=== PATIENT | male | born 1935 | race Two or more races ===

== ENCOUNTER 2022-01-21 07:55 | Emergency (ER) | payer OTHER ==
[~2022-01-21] VITALS: Ht 172.7 cm; Wt 94.8 kg
[2022-01-21] MEDS ORDERED: SODIUM CHLORIDE 0.9% 1,000 ML IV ONE (08:15)
[2022-01-21] MEDS ORDERED: MECL1TAB42 PO (09:33)
[2022-01-21] MEDS ORDERED: cloNIDine HCL 0.1 MG TAB PO ONE (09:45)
[2022-01-21 10:12] LABS: Basophils # (auto) 0.1 10 ^3/uL (0-0.2); Basophils % (auto) 1.5 % (0.0-2.0); Eosinophils # (auto) 0.2 10 ^3/uL (0-0.8); Eosinophils % (auto) 5.2 % (0.0-7.0); Hematocrit 39.4 % (41.0-53.0); Hemoglobin 12.8 g/dL (13.5-17.5); Lymphocytes # (auto) 1.4 10 ^3/uL (0.4-5.4); Lymphocytes % (auto) 31.8 % (10.0-50.0); Mean Corpuscular Hemoglobin 29.4 pg (28.0-32.0); Mean Corpuscular Hgb Conc. 32.6 g/dL (32.0-36.0); Mean Corpuscular Volume 90.2 fL (80.0-100.0); Monocytes # (auto) 0.5 10 ^3/uL (0-1.3); Monocytes % (auto) 10.2 % (0.0-12.0); Neutrophils # (auto) 2.3 10 ^3/uL (1.6-8.6); Neutrophils % (auto) 51.3 % (37.0-80.0); Nucleated Red Blood Cells % 0.1 %; Red Blood Cells 4.37 10^6/uL (4.5-5.90); Red Cell Distribution Width 16.5 % (11.8-14.3); White Blood Cell 4.4 10^3/uL (4.4-10.8)
[2022-01-21 10:49] LABS: Albumin 3.5 g/dL (3.4-5.0); Calcium 9.2 mg/dL (8.5-10.1); Potassium 5.1 mmol/L (3.5-5.1)
[2022-01-21 10:54] LABS: Bilirubin, Total 0.5 mg/dL (0.2-1.0); Total Protein 7.8 g/dL (6.4-8.2)
[2022-01-21 14:38] VITALS: BP 170/74
== END 2022-01-21 14:30 | disposition home or self-care (01) ==
LOC: ER 07:55
DX: R42 Dizziness and giddiness (principal); I10 Essential (primary) hypertension
CPT/HCPCS: 36415; 70450; 71045; 80053; 83880; 84484; 85025; 93005; 96360; 96361; 99285; J7030

== ENCOUNTER 2022-05-15 11:33 | Inpatient (IN) | payer OTHER ==
[~2022-05-15] VITALS: Ht 172.7 cm; Wt 104.2 kg
[~2022-05-15 11:33] MED LIST: MECL1TAB42 PO
[2022-05-15] MEDS ORDERED: HYDROcodone-ACET 5/325MG TAB PO ONE (20:00)
[2022-05-15 20:25] LABS: Basophils # (auto) 0.1 10 ^3/uL (0-0.2); Eosinophils # (auto) 0.3 10 ^3/uL (0-0.8); Eosinophils % (auto) 3.9 % (0.0-7.0); Hematocrit 38.2 % (41.0-53.0); Hemoglobin 12.6 g/dL (13.5-17.5); Lymphocytes # (auto) 0.9 10 ^3/uL (0.4-5.4); Mean Corpuscular Hemoglobin 29.8 pg (28.0-32.0); Mean Corpuscular Hgb Conc. 33.1 g/dL (32.0-36.0); Mean Corpuscular Volume 90.2 fL (80.0-100.0); Monocytes # (auto) 0.6 10 ^3/uL (0-1.3); Monocytes % (auto) 8.2 % (0.0-12.0); Neutrophils # (auto) 5.9 10 ^3/uL (1.6-8.6); Neutrophils % (auto) 74.9 % (37.0-80.0); Nucleated Red Blood Cells % 0.1 %; Red Blood Cells 4.23 10^6/uL (4.5-5.90); Red Cell Distribution Width 16.7 % (11.8-14.3); White Blood Cell 7.8 10^3/uL (4.4-10.8)
[2022-05-15 20:38] LABS: Albumin 2.9 g/dL (3.4-5.0); Calcium 9.2 mg/dL (8.5-10.1); Potassium 4.8 mmol/L (3.5-5.1)
[2022-05-15 21:04] LABS: BUN/Creatinine Ratio 19.2
[2022-05-15 21:05] LABS: Bilirubin, Total 4.3 mg/dL (0.2-1.0); Total Protein 7.8 g/dL (6.4-8.2)
[2022-05-15 22:19] LABS: Uric Acid 2.3 mg/dL (3.5-7.2)
[2022-05-15] MEDS ORDERED: SODIUM CHLORIDE 0.9% 1,000 ML IV ONE ×2 (23:00)
[2022-05-16] MEDS ORDERED: SODIUM CHLORIDE 0.9% 1,000 ML IV ONE (00:45)
[2022-05-16] MEDS ORDERED: ONDANSETRON HCL 4 MG/2 ML VIAL IV PRN (01:00)
[2022-05-16] MEDS ORDERED: fentaNYL CITRATE 100 MCG/2 ML VL IV ONE (01:15)
[2022-05-16 05:34] LABS: Basophils # (auto) 0.1 10 ^3/uL (0-0.2); Basophils % (auto) 1.5 % (0.0-2.0); Eosinophils # (auto) 0.3 10 ^3/uL (0-0.8); Eosinophils % (auto) 4.3 % (0.0-7.0); Hemoglobin 11.5 g/dL (13.5-17.5); Lymphocytes # (auto) 0.7 10 ^3/uL (0.4-5.4); Lymphocytes % (auto) 9.8 % (10.0-50.0); Mean Corpuscular Hemoglobin 30.4 pg (28.0-32.0); Mean Corpuscular Hgb Conc. 33.7 g/dL (32.0-36.0); Mean Corpuscular Volume 90.1 fL (80.0-100.0); Monocytes # (auto) 0.6 10 ^3/uL (0-1.3); Monocytes % (auto) 8.8 % (0.0-12.0); Neutrophils # (auto) 5.4 10 ^3/uL (1.6-8.6); Neutrophils % (auto) 75.6 % (37.0-80.0); Red Blood Cells 3.78 10^6/uL (4.5-5.90); Red Cell Distribution Width 16.6 % (11.8-14.3); White Blood Cell 7.2 10^3/uL (4.4-10.8)
[2022-05-16 05:51] LABS: Albumin 2.1 g/dL (3.4-5.0); Calcium 8.2 mg/dL (8.5-10.1); Potassium 4.1 mmol/L (3.5-5.1)
[2022-05-16 06:02] LABS: Bilirubin, Total 4.7 mg/dL (0.2-1.0); Total Protein 6.6 g/dL (6.4-8.2)
[2022-05-16 06:29] LABS: BUN/Creatinine Ratio 17.8
[2022-05-16] MEDS: ALBUMIN 25% 100 ML IV SCH ×3 (06:34→21:51)
[2022-05-16 07:01] LABS: Urine Bacteria FEW /hpf (None Seen); Urine Blood 3+ /uL (Negative); Urine Specific Gravity 1.004 (1.001-1.035); Urine WBC 1 /hpf (0 - 3)
[2022-05-16 07:11] LABS: Amphetamine Screen, Urine NEGATIVE (NEGATIVE); Barbiturate Scree,Urine NEGATIVE (NEGATIVE); Benzodiazephine Screen, Urine NEGATIVE (NEGATIVE); Cannabinoid Screen, Urine NEGATIVE (NEGATIVE)
[2022-05-16 07:13] LABS: Alcohol, Urine < 3.0 mg/dL (0-10); Cocaine Screen, Urine NEGATIVE (NEGATIVE); Opiate Scree,Urine NEGATIVE (NEGATIVE); Phencyclidine Screen, Urine NEGATIVE (NEGATIVE)
[2022-05-16] MEDS: SODIUM CHLORIDE 0.9% 1,000 ML IV SCH ×4 (08:54→21:31)
[2022-05-16 13:16] LABS: Hepatitis A Ab IgM Negative; Hepatitis C Antibody Negative (Negative)
[2022-05-16 13:50] VITALS: BP 145/81
[2022-05-16 16:00] VITALS: BP 125/74
[2022-05-16 16:50] LABS: Hepatitis B Core IgM Negative
[2022-05-16] MEDS: MORPHINE SULFATE INJ 2 MG/ml SYRG IV PRN (17:57)
[2022-05-16 22:00] VITALS: BP 151/81
[2022-05-17] MEDS ORDERED: TAMS0.4C36 PO (01:50)
[2022-05-17] MEDS ORDERED: ASPI-543 PO (01:50)
[2022-05-17] MEDS ORDERED: TRIATAB3 PO (01:50)
[2022-05-17] MEDS ORDERED: ATOR40TA52 PO (01:50)
[2022-05-17] MEDS ORDERED: LEVO88TA4 PO (01:50)
[2022-05-17] MEDS ORDERED: ALLO100T PO (01:50)
[2022-05-17] MEDS ORDERED: ALBU2TAB4 PO (01:50)
[2022-05-17] MEDS: SODIUM CHLORIDE 0.9% 1,000 ML IV SCH ×3 (04:45→18:05)
[2022-05-17 05:00] VITALS: BP 142/74
[2022-05-17 05:08] LABS: Basophils # (auto) 0.1 10 ^3/uL (0-0.2); Basophils % (auto) 1.1 % (0.0-2.0); Eosinophils # (auto) 0.3 10 ^3/uL (0-0.8); Eosinophils % (auto) 4.2 % (0.0-7.0); Hematocrit 33.3 % (41.0-53.0); Lymphocytes # (auto) 0.6 10 ^3/uL (0.4-5.4); Lymphocytes % (auto) 8.5 % (10.0-50.0); Monocytes # (auto) 0.5 10 ^3/uL (0-1.3); Monocytes % (auto) 6.7 % (0.0-12.0); Neutrophils # (auto) 5.4 10 ^3/uL (1.6-8.6); Neutrophils % (auto) 79.5 % (37.0-80.0); Nucleated Red Blood Cells % 0.1 %; Red Blood Cells 3.66 10^6/uL (4.5-5.90); Red Cell Distribution Width 16.7 % (11.8-14.3); White Blood Cell 6.8 10^3/uL (4.4-10.8)
[2022-05-17] MEDS: MORPHINE SULFATE INJ 2 MG/ml SYRG IV PRN ×3 (05:12→23:13)
[2022-05-17 05:14] LABS: INR 1.06 (0.9-1.15)
[2022-05-17 05:27] LABS: Potassium 4.7 mmol/L (3.5-5.1)
[2022-05-17 05:46] LABS: Albumin 2.9 g/dL (3.4-5.0); Bilirubin, Total 4.3 mg/dL (0.2-1.0); Calcium 8.2 mg/dL (8.5-10.1); Total Protein 5.8 g/dL (6.4-8.2)
[2022-05-17 07:30] VITALS: BP 158/98
[2022-05-17 09:00] VITALS: BP 158/78
[2022-05-17 13:00] VITALS: BP 150/75
[2022-05-17] MEDS ORDERED: SODIUM CHLORIDE 0.9% 2,000 ML IV ONE (14:30)
[2022-05-17 22:00] VITALS: BP 145/70
[2022-05-18] MEDS: SODIUM CHLORIDE 0.9% 1,000 ML IV SCH ×4 (00:55→21:51)
[2022-05-18 05:00] VITALS: BP 136/66
[2022-05-18 05:45] LABS: Basophils # (auto) 0.1 10 ^3/uL (0-0.2); Eosinophils # (auto) 0.3 10 ^3/uL (0-0.8); Eosinophils % (auto) 4.3 % (0.0-7.0); Hematocrit 33.3 % (41.0-53.0); Hemoglobin 11.4 g/dL (13.5-17.5); Lymphocytes # (auto) 0.6 10 ^3/uL (0.4-5.4); Lymphocytes % (auto) 7.3 % (10.0-50.0); Mean Corpuscular Hemoglobin 31.3 pg (28.0-32.0); Mean Corpuscular Hgb Conc. 34.4 g/dL (32.0-36.0); Mean Corpuscular Volume 91.1 fL (80.0-100.0); Monocytes # (auto) 0.5 10 ^3/uL (0-1.3); Monocytes % (auto) 6.9 % (0.0-12.0); Neutrophils # (auto) 6.2 10 ^3/uL (1.6-8.6); Neutrophils % (auto) 80.5 % (37.0-80.0); Red Blood Cells 3.65 10^6/uL (4.5-5.90); Red Cell Distribution Width 16.5 % (11.8-14.3); White Blood Cell 7.7 10^3/uL (4.4-10.8)
[2022-05-18 05:56] LABS: Potassium 5.3 mmol/L (3.5-5.1)
[2022-05-18 06:18] LABS: Albumin 2.2 g/dL (3.4-5.0); BUN/Creatinine Ratio 18.3; Bilirubin, Total 4.8 mg/dL (0.2-1.0); Calcium 8.1 mg/dL (8.5-10.1)
[2022-05-18 09:00] VITALS: BP 111/72
[2022-05-18] MEDS: MORPHINE SULFATE INJ 2 MG/ml SYRG IV PRN ×2 (10:22→19:31)
[2022-05-18 13:00] VITALS: BP 135/67
[2022-05-18] MEDS ORDERED: SODIUM CHLORIDE 0.9% 3,000 ML IV ONE (15:00)
[2022-05-18] MEDS ORDERED: BUMETANIDE 2.5mg/10ml (0.25 mg/ml) INJ IV ONE (15:00)
[2022-05-18 17:00] VITALS: BP 129/65
[2022-05-18] MEDS: DOCUSATE SOD 100 MG CAP PO SCH (21:51)
[2022-05-18 22:00] VITALS: BP 146/74
[2022-05-19] MEDS: MORPHINE SULFATE INJ 2 MG/ml SYRG IV PRN ×4 (01:40→19:05)
[2022-05-19] MEDS: SODIUM CHLORIDE 0.9% 1,000 ML IV SCH ×4 (04:54→22:00)
[2022-05-19 05:00] VITALS: BP 141/77
[2022-05-19 05:10] LABS: Basophils # (auto) 0.1 10 ^3/uL (0-0.2); Basophils % (auto) 1.3 % (0.0-2.0); Eosinophils # (auto) 0.3 10 ^3/uL (0-0.8); Eosinophils % (auto) 3.5 % (0.0-7.0); Hematocrit 33.8 % (41.0-53.0); Hemoglobin 11.3 g/dL (13.5-17.5); Lymphocytes # (auto) 0.6 10 ^3/uL (0.4-5.4); Lymphocytes % (auto) 8.9 % (10.0-50.0); Mean Corpuscular Hemoglobin 30.5 pg (28.0-32.0); Mean Corpuscular Hgb Conc. 33.5 g/dL (32.0-36.0); Mean Corpuscular Volume 91.1 fL (80.0-100.0); Monocytes # (auto) 0.6 10 ^3/uL (0-1.3); Monocytes % (auto) 7.9 % (0.0-12.0); Neutrophils # (auto) 5.7 10 ^3/uL (1.6-8.6); Neutrophils % (auto) 78.4 % (37.0-80.0); Red Blood Cells 3.71 10^6/uL (4.5-5.90); Red Cell Distribution Width 17.1 % (11.8-14.3); White Blood Cell 7.3 10^3/uL (4.4-10.8)
[2022-05-19 05:23] LABS: Albumin 1.9 g/dL (3.4-5.0); Calcium 7.8 mg/dL (8.5-10.1); Potassium 5.5 mmol/L (3.5-5.1)
[2022-05-19 05:40] LABS: BUN/Creatinine Ratio 17.8; Total Protein 5.6 g/dL (6.4-8.2)
[2022-05-19 08:00] VITALS: BP 135/67
[2022-05-19] MEDS ORDERED: SODIUM ZIRCONIUM CYCL 10 GM PAK PO ONE ×2 (08:00→10:00)
[2022-05-19] MEDS ORDERED: SODIUM CHLORIDE 0.9% 2,000 ML IV ONE (08:00)
[2022-05-19] MEDS ORDERED: BUMETANIDE 2.5mg/10ml (0.25 mg/ml) INJ IV ONE (08:00)
[2022-05-19 09:00] VITALS: BP 140/68
[2022-05-19] MEDS: DOCUSATE SOD 100 MG CAP PO SCH ×2 (10:37→21:32)
[2022-05-19] MEDS: SODIUM ZIRCONIUM CYCL 10 GM PAK PO SCH ×2 (11:56→16:05)
[2022-05-19 12:53] VITALS: BP 146/70
[2022-05-19 17:18] VITALS: BP 138/63
[2022-05-19] MEDS: HEPARIN SODIUM (PORCINE) 5000 UNITS/ML 1ML VIAL SC SCH (21:33)
[2022-05-19 22:00] VITALS: BP 144/61
[2022-05-19] MEDS: HYDROcodone-ACET 5/325MG TAB PO PRN (23:34)
[2022-05-20] MEDS: MORPHINE SULFATE INJ 2 MG/ml SYRG IV PRN ×3 (02:14→19:03)
[2022-05-20 05:00] VITALS: BP 139/61
[2022-05-20 05:26] LABS: Basophils # (auto) 0.1 10 ^3/uL (0-0.2); Basophils % (auto) 1.1 % (0.0-2.0); Eosinophils # (auto) 0.3 10 ^3/uL (0-0.8); Eosinophils % (auto) 4.7 % (0.0-7.0); Hematocrit 37.1 % (41.0-53.0); Lymphocytes # (auto) 0.7 10 ^3/uL (0.4-5.4); Lymphocytes % (auto) 11.2 % (10.0-50.0); Mean Corpuscular Hemoglobin 30.5 pg (28.0-32.0); Mean Corpuscular Hgb Conc. 32.3 g/dL (32.0-36.0); Mean Corpuscular Volume 94.4 fL (80.0-100.0); Monocytes # (auto) 0.5 10 ^3/uL (0-1.3); Monocytes % (auto) 8.1 % (0.0-12.0); Neutrophils % (auto) 74.9 % (37.0-80.0); Nucleated Red Blood Cells % 0.2 %; Red Blood Cells 3.94 10^6/uL (4.5-5.90); Red Cell Distribution Width 17.8 % (11.8-14.3); White Blood Cell 6.6 10^3/uL (4.4-10.8)
[2022-05-20 05:39] LABS: Albumin 1.7 g/dL (3.4-5.0); Calcium 8.1 mg/dL (8.5-10.1)
[2022-05-20 05:41] LABS: BUN/Creatinine Ratio 19.1
[2022-05-20 05:59] LABS: Bilirubin, Total 5.3 mg/dL (0.2-1.0); Total Protein 5.5 g/dL (6.4-8.2)
[2022-05-20] MEDS: SODIUM CHLORIDE 0.9% 1,000 ML IV SCH (06:57)
[2022-05-20 08:58] VITALS: BP 113/40
[2022-05-20] MEDS: DOCUSATE SOD 100 MG CAP PO SCH ×2 (10:29→21:39)
[2022-05-20] MEDS: HEPARIN SODIUM (PORCINE) 5000 UNITS/ML 1ML VIAL SC SCH ×2 (10:39→21:40)
[2022-05-20 11:53] LABS: INR 1.11 (0.9-1.15)
[2022-05-20 12:24] VITALS: BP 121/50
[2022-05-20] MEDS: CALCIUM ACETATE 667 MG CAP PO SCH ×2 (13:00→18:59)
[2022-05-20] MEDS: SODIUM BICARBONATE 50ML VIAL 50 ML in SOD CHL 0.45% 1,000 ML IV SCH ×3 (13:00→20:30)
[2022-05-20 16:34] VITALS: BP 138/59
[2022-05-20] MEDS: HYDROcodone-ACET 5/325MG TAB PO PRN (21:40)
[2022-05-20 22:00] VITALS: BP 117/59
[2022-05-21] MEDS: SODIUM BICARBONATE 50ML VIAL 50 ML in SOD CHL 0.45% 1,000 ML IV SCH ×2 (04:05→15:05)
[2022-05-21 05:00] VITALS: BP 125/56
[2022-05-21 05:00] LABS: Basophils # (auto) 0.1 10 ^3/uL (0-0.2); Basophils % (auto) 1.3 % (0.0-2.0); Eosinophils # (auto) 0.4 10 ^3/uL (0-0.8); Eosinophils % (auto) 5.3 % (0.0-7.0); Hematocrit 33.2 % (41.0-53.0); Lymphocytes # (auto) 0.6 10 ^3/uL (0.4-5.4); Lymphocytes % (auto) 9.6 % (10.0-50.0); Mean Corpuscular Hemoglobin 30.9 pg (28.0-32.0); Mean Corpuscular Hgb Conc. 33.2 g/dL (32.0-36.0); Mean Corpuscular Volume 93.1 fL (80.0-100.0); Monocytes # (auto) 0.4 10 ^3/uL (0-1.3); Monocytes % (auto) 6.5 % (0.0-12.0); Neutrophils # (auto) 5.2 10 ^3/uL (1.6-8.6); Neutrophils % (auto) 77.3 % (37.0-80.0); Nucleated Red Blood Cells % 0.1 %; Red Blood Cells 3.57 10^6/uL (4.5-5.90); Red Cell Distribution Width 17.5 % (11.8-14.3); White Blood Cell 6.8 10^3/uL (4.4-10.8)
[2022-05-21 05:13] LABS: Albumin 1.6 g/dL (3.4-5.0); Calcium 7.4 mg/dL (8.5-10.1); Potassium 4.9 mmol/L (3.5-5.1)
[2022-05-21 05:27] LABS: BUN/Creatinine Ratio 18.8; Bilirubin, Total 5.3 mg/dL (0.2-1.0); Total Protein 4.6 g/dL (6.4-8.2)
[2022-05-21 09:00] VITALS: BP 94/57
[2022-05-21] MEDS: CALCIUM ACETATE 667 MG CAP PO SCH ×3 (09:37→19:29)
[2022-05-21] MEDS: DOCUSATE SOD 100 MG CAP PO SCH ×2 (09:37→21:35)
[2022-05-21] MEDS: HEPARIN SODIUM (PORCINE) 5000 UNITS/ML 1ML VIAL SC SCH ×2 (09:38→21:46)
[2022-05-21] MEDS: ALBUMIN 25% 100 ML IV SCH ×2 (12:02→19:29)
[2022-05-21 12:03] LABS: Protein, Urine 73.5 mg/dL (0.0-11.9)
[2022-05-21 13:07] VITALS: BP 93/64
[2022-05-21] MEDS ORDERED: LIDOCAINE HCL 2% TOP JELLY 5ML TOP ONE (13:30)
[2022-05-21 13:36] LABS: Hepatitis C Antibody Negative (Negative)
[2022-05-21] MEDS: methylPREDNISolone SOD SUCC 40 MG/ML VL IV SCH ×2 (13:58→21:32)
[2022-05-21] MEDS ORDERED: LIDOCAINE HCL 5 % TOP OINT 35 GM TOP ONE (14:15)
[2022-05-21] MEDS: MORPHINE SULFATE INJ 2 MG/ml SYRG IV PRN ×2 (14:26→21:33)
[2022-05-21] MEDS ORDERED: LIDOCAINE HCL 4% TOP ONE (15:15)
[2022-05-21 16:49] VITALS: BP 99/68
[2022-05-21] MEDS: HYDROcodone-ACET 5/325MG TAB PO PRN (17:24)
[2022-05-21 22:00] VITALS: BP 93/68
[2022-05-22] MEDS: SODIUM BICARBONATE 50ML VIAL 50 ML in SOD CHL 0.45% 1,000 ML IV SCH ×4 (00:09→18:16)
[2022-05-22] MEDS: ALBUMIN 25% 100 ML IV SCH (02:23)
[2022-05-22 05:00] VITALS: BP 108/72
[2022-05-22 07:24] LABS: Basophils # (auto) 0 10 ^3/uL (0-0.2); Basophils % (auto) 0.2 % (0.0-2.0); Eosinophils # (auto) 0 10 ^3/uL (0-0.8); Eosinophils % (auto) 0.1 % (0.0-7.0); Hematocrit 29.7 % (41.0-53.0); Lymphocytes # (auto) 0.5 10 ^3/uL (0.4-5.4); Lymphocytes % (auto) 7.3 % (10.0-50.0); Mean Corpuscular Hemoglobin 31.4 pg (28.0-32.0); Mean Corpuscular Hgb Conc. 33.7 g/dL (32.0-36.0); Mean Corpuscular Volume 93.2 fL (80.0-100.0); Monocytes # (auto) 0.2 10 ^3/uL (0-1.3); Monocytes % (auto) 2.4 % (0.0-12.0); Neutrophils # (auto) 6.6 10 ^3/uL (1.6-8.6); Nucleated Red Blood Cells % 0.1 %; Red Blood Cells 3.19 10^6/uL (4.5-5.90); Red Cell Distribution Width 17.3 % (11.8-14.3); White Blood Cell 7.3 10^3/uL (4.4-10.8)
[2022-05-22 07:43] LABS: Chloride 106 mmol/L (98-107); Potassium 4.7 mmol/L (3.5-5.1); Sodium 136 mmol/L (136-145)
[2022-05-22 08:17] LABS: Alanine Aminotransferase 317 U/L (16-61); Albumin 2.6 g/dL (3.4-5.0); Aspartate Aminotransferase 422 U/L (15-37); BUN/Creatinine Ratio 18.8; Bilirubin, Total 2.4 mg/dL (0.2-1.0); Calcium 7.6 mg/dL (8.5-10.1); Carbon Dioxide 18 mmol/L (21-32); GFR African American 13 mL/min; GFR Non-African American 11 mL/min; Glucose 227 mg/dL (74-106); Phosphorus 5.2 mg/dL (2.5-4.90); Total Protein 5.2 g/dL (6.4-8.2)
[2022-05-22 08:25] LABS: Blood Urea Nitrogen 102 mg/dL (7-18)
[2022-05-22 08:27] LABS: Creatine Kinase IFCC 9597 U/L (39-308)
[2022-05-22 08:47] LABS: Alkaline Phosphatase 1227 U/L (45-117)
[2022-05-22 09:00] VITALS: BP 106/68
[2022-05-22] MEDS: LACTULOSE 20Gm/30ML SOLN PO SCH (09:13)
[2022-05-22] MEDS: DOCUSATE SOD 100 MG CAP PO SCH ×2 (09:13→22:27)
[2022-05-22] MEDS: CALCIUM ACETATE 667 MG CAP PO SCH ×3 (09:13→18:16)
[2022-05-22] MEDS: methylPREDNISolone SOD SUCC 40 MG/ML VL IV SCH ×2 (09:14→22:26)
[2022-05-22] MEDS ORDERED: ERGOCALCIFEROL 50,000 UNIT(1.25MG) CAP PO SCH (09:15)
[2022-05-22] MEDS: FUROSEMIDE 40 MG/4 ML VIAL IV ONE ×2 (09:15→09:29)
[2022-05-22] MEDS: HEPARIN SODIUM (PORCINE) 5000 UNITS/ML 1ML VIAL SC SCH ×2 (09:54→22:27)
[2022-05-22 10:51] LABS: Potassium 4.4 mmol/L (3.5-5.1)
[2022-05-22 11:16] LABS: Albumin 2.5 g/dL (3.4-5.0); BUN/Creatinine Ratio 18.7; Bilirubin, Total 2.2 mg/dL (0.2-1.0); Calcium 7.6 mg/dL (8.5-10.1); Total Protein 5.8 g/dL (6.4-8.2)
[2022-05-22 12:30] VITALS: BP 117/76
[2022-05-22 17:05] VITALS: BP 102/69
[2022-05-22 22:00] VITALS: BP 134/79
[2022-05-23] MEDS: SODIUM BICARBONATE 50ML VIAL 50 ML in SOD CHL 0.45% 1,000 ML IV SCH ×2 (02:39→09:18)
[2022-05-23 05:00] VITALS: BP 124/82
[2022-05-23 06:32] LABS: Albumin 2.4 g/dL (3.4-5.0); Calcium 7.4 mg/dL (8.5-10.1); Potassium 4.3 mmol/L (3.5-5.1)
[2022-05-23 06:37] LABS: Basophils # (auto) 0 10 ^3/uL (0-0.2); Basophils % (auto) 0.3 % (0.0-2.0); Eosinophils # (auto) 0 10 ^3/uL (0-0.8); Hematocrit 31.6 % (41.0-53.0); Hemoglobin 10.7 g/dL (13.5-17.5); Lymphocytes # (auto) 0.7 10 ^3/uL (0.4-5.4); Lymphocytes % (auto) 7.3 % (10.0-50.0); Mean Corpuscular Hemoglobin 31.2 pg (28.0-32.0); Mean Corpuscular Hgb Conc. 33.8 g/dL (32.0-36.0); Mean Corpuscular Volume 92.3 fL (80.0-100.0); Monocytes # (auto) 0.3 10 ^3/uL (0-1.3); Monocytes % (auto) 2.9 % (0.0-12.0); Neutrophils # (auto) 8.7 10 ^3/uL (1.6-8.6); Neutrophils % (auto) 89.5 % (37.0-80.0); Nucleated Red Blood Cells % 0.1 %; Red Blood Cells 3.42 10^6/uL (4.5-5.90); Red Cell Distribution Width 17.3 % (11.8-14.3); White Blood Cell 9.7 10^3/uL (4.4-10.8)
[2022-05-23 06:58] LABS: BUN/Creatinine Ratio 19.7; Bilirubin, Total 1.9 mg/dL (0.2-1.0); Total Protein 5.9 g/dL (6.4-8.2)
[2022-05-23 08:00] VITALS: BP 118/79
[2022-05-23 09:00] VITALS: BP 118/79
[2022-05-23] MEDS: LACTULOSE 20Gm/30ML SOLN PO SCH (09:18)
[2022-05-23] MEDS: DOCUSATE SOD 100 MG CAP PO SCH (09:19)
[2022-05-23] MEDS: CALCIUM ACETATE 667 MG CAP PO SCH ×2 (09:19→13:13)
[2022-05-23] MEDS: methylPREDNISolone SOD SUCC 40 MG/ML VL IV SCH (09:19)
[2022-05-23] MEDS: HEPARIN SODIUM (PORCINE) 5000 UNITS/ML 1ML VIAL SC SCH (10:58)
[2022-05-23 13:00] VITALS: BP 131/81
== END 2022-05-23 17:19 | disposition home health service (06) | DRG 557 ==
LOC: ER 11:33 → OVERFLOW 05-16 00:50 → INTOOBSV 05-16 00:50 → UNDOADMOB 05-16 00:50 → CENTRAL 05-16 13:41 → OVERFLOW 05-16 13:41 → OBSVTOIN 05-17 17:01 → CENTRAL 05-17 17:01 → INTOOBSV 05-17 17:01 → UNDOADMOB 05-17 17:01 → OVERFLOW 05-17 17:01 → CENTRAL 05-19 15:37 → TELE-CENTR 05-19 15:37
PROVIDERS: ADMIT Internal Medicine; ATTEND Internal Medicine
DX: M62.82 Rhabdomyolysis (principal); N17.0 Acute kidney failure with tubular necrosis; B17.9 Acute viral hepatitis, unspecified; I24.8 Other forms of acute ischemic heart disease; E87.2 Acidosis; E86.0 Dehydration; I10 Essential (primary) hypertension; E78.5 Hyperlipidemia, unspecified; J44.9 Chronic obstructive pulmonary disease, unspecified; Z20.822 Contact with and (suspected) exposure to COVID-19; N40.0 Benign prostatic hyperplasia without lower urinary tract symptoms; K59.00 Constipation, unspecified; E66.9 Obesity, unspecified; M10.9 Gout, unspecified; R77.8 Other specified abnormalities of plasma proteins; R79.89 Other specified abnormal findings of blood chemistry; D64.9 Anemia, unspecified; E55.9 Vitamin D deficiency, unspecified; Z68.33 Body mass index [BMI] 33.0-33.9, adult
CPT/HCPCS: 36415; 71045; 74176; 76705; 76775; 80053; 80074; 80307; 81001; 82140; 82248; 82306; 82550; 82570; 82728; 83036; 83520; 83605; 83880; 83970; 84100; 84156; 84300; 84484; 84550; 85025; 85610; 86038; 86160; 86256; 86803; 87340; 87426; 93005; 93306; 93970; 96361; 96365; 99291; G0378; P9047

== ENCOUNTER 2022-08-07 16:21 | Emergency (ER) | payer OTHER ==
[~2022-08-07] VITALS: Ht 172.7 cm; Wt 88.6 kg
[~2022-08-07 16:21] MED LIST changes: +ALBU2TAB4 PO; +ASPI-543 PO; +LEVO88TA4 PO; +TAMS0.4C36 PO
[2022-08-07 19:09] LABS: Urine Specific Gravity 1.015 (1.001-1.035)
[2022-08-07 19:10] LABS: Urine Blood Negative /uL (Negative)
[2022-08-07 19:43] LABS: Eosinophils # (auto) 0 10 ^3/uL (0-0.8); Hematocrit 34.5 % (41.0-53.0); Hemoglobin 11.4 g/dL (13.5-17.5); Monocytes # (auto) 0.4 10 ^3/uL (0-1.3)
[2022-08-07 19:45] LABS: Basophils # (auto) 0 10 ^3/uL (0-0.2); Basophils % (auto) 0.4 % (0.0-2.0); Lymphocytes # (auto) 0.9 10 ^3/uL (0.4-5.4); Lymphocytes % (auto) 7.3 % (10.0-50.0); Mean Corpuscular Hemoglobin 31.2 pg (28.0-32.0); Mean Corpuscular Volume 94.5 fL (80.0-100.0); Monocytes % (auto) 3.6 % (0.0-12.0); Neutrophils % (auto) 88.7 % (37.0-80.0); Red Blood Cells 3.66 10^6/uL (4.5-5.90); Red Cell Distribution Width 14.8 % (11.8-14.3); White Blood Cell 12.4 10^3/uL (4.4-10.8)
[2022-08-07 20:15] LABS: Albumin 2.3 g/dL (3.4-5.0); BUN/Creatinine Ratio 16.4; Bilirubin, Total 1.6 mg/dL (0.2-1.0); Calcium 8.8 mg/dL (8.5-10.1); Potassium 5.3 mmol/L (3.5-5.1); Total Protein 6.6 g/dL (6.4-8.2)
[2022-08-07] MEDS ORDERED: SODIUM ZIRCONIUM CYCL 10 GM PAK PO ONE (20:45)
[2022-08-07] MEDS ORDERED: ACETAMINOPHEN 325 MG TAB PO ONE (20:45)
[2022-08-07] MEDS ORDERED: InsuLIN REG 1unit/0.01ml Soln (100units/ml) IV ONE (20:45)
[2022-08-07] MEDS ORDERED: ONDANSETRON HCL 4 MG/2 ML VIAL IV ONE (20:45)
[2022-08-07] MEDS ORDERED: SODIUM CHLORIDE 0.9% 1,000 ML IV ONE (20:45)
[2022-08-07] MEDS ORDERED: DEXTROSE (50%) 50ML SYRG IV ONE (20:45)
[2022-08-07] MEDS ORDERED: SODIUM BICARBONATE 8.4% INJ 50ML SYRINGE IV ONE (20:45)
[2022-08-07] MEDS ORDERED: CALCIUM GLUC 1,000mg/50ml-NS 50 ML IV ONE (20:45)
[2022-08-07] MEDS ORDERED: SODIUM CHLORIDE 0.9% 500 ML IV ONE (22:30)
[2022-08-07] MEDS ORDERED: ALBUMIN 25% 100 ML IV ONE (22:30)
[2022-08-08 00:15] VITALS: BP 119/62
== END 2022-08-08 00:51 | disposition left against medical advice (07) ==
LOC: ER 16:21 → EDBD 16:21 → ER 08-08 00:51
DX: N17.9 Acute kidney failure, unspecified (principal); E87.5 Hyperkalemia; B34.9 Viral infection, unspecified; J44.9 Chronic obstructive pulmonary disease, unspecified; M10.9 Gout, unspecified; E78.5 Hyperlipidemia, unspecified; I10 Essential (primary) hypertension; E03.9 Hypothyroidism, unspecified; Z79.82 Long term (current) use of aspirin; Z79.899 Other long term (current) drug therapy; Z20.822 Contact with and (suspected) exposure to COVID-19
CPT/HCPCS: 36415; 71045; 80053; 81003; 84484; 85025; 87426; 87804; 93005

== ENCOUNTER 2022-08-16 02:11 | Emergency (ER) | payer OTHER ==
[~2022-08-16] VITALS: Ht 167.6 cm; Wt 85.0 kg
[2022-08-16] MEDS ORDERED: AMIODARONE HCL 150 MG in D5W 5% 100 ML IV ONE ×2 (02:30→03:00)
[2022-08-16] MEDS ORDERED: SODIUM CHLORIDE 0.9% 1,000 ML IV ONE ×2 (03:00→04:15)
[2022-08-16] MEDS ORDERED: CALCIUM CHL 100MG/ML 1,000 MG in D5W 5% 100 ML IV ONE ×4 (03:00)
[2022-08-16] MEDS ORDERED: SODIUM BICARBONATE 8.4 % INJ 50ML VIAL IV ONE (03:00)
[2022-08-16 03:06] LABS: Urine Bacteria FEW /hpf (None Seen); Urine Blood Negative /uL (Negative); Urine Hyaline Cast FEW /lpf (0 - 2); Urine Specific Gravity 1.016 (1.001-1.035); Urine WBC 27 /hpf (0 - 3)
[2022-08-16 03:45] LABS: Basophils # (auto) 0 10 ^3/uL (0-0.2); Basophils % (auto) 0.1 % (0.0-2.0); Eosinophils # (auto) 0 10 ^3/uL (0-0.8); Hematocrit 34.2 % (41.0-53.0); Hemoglobin 11.2 g/dL (13.5-17.5); Lymphocytes # (auto) 0.6 10 ^3/uL (0.4-5.4); Mean Corpuscular Hemoglobin 30.3 pg (28.0-32.0); Mean Corpuscular Hgb Conc. 32.9 g/dL (32.0-36.0); Mean Corpuscular Volume 92.3 fL (80.0-100.0); Monocytes # (auto) 0.4 10 ^3/uL (0-1.3); Monocytes % (auto) 2.1 % (0.0-12.0); Neutrophils # (auto) 19.5 10 ^3/uL (1.6-8.6); Neutrophils % (auto) 94.8 % (37.0-80.0); Red Cell Distribution Width 14.6 % (11.8-14.3); White Blood Cell 20.5 10^3/uL (4.4-10.8)
[2022-08-16 03:56] LABS: Albumin 2.2 g/dL (3.4-5.0); BUN/Creatinine Ratio 19.2; Calcium 8.3 mg/dL (8.5-10.1); Potassium 5.4 mmol/L (3.5-5.1)
[2022-08-16 04:10] LABS: Bilirubin, Total 3.4 mg/dL (0.2-1.0); Total Protein 6.4 g/dL (6.4-8.2)
[2022-08-16] MEDS ORDERED: PIPERACILLIN-TAZO 4.5GM 100 ML IV ONE (04:30)
[2022-08-16 05:02] LABS: Lactic Acid w/Reflex 3.9 mmol/L (0.4-2.0)
[2022-08-16] MEDS ORDERED: VANCOMYCIN PER PHARMACY 0 MG IV SCH (10:45)
[2022-08-16] MEDS ORDERED: VANCOMYCIN 1GM/250ML 250 ML IV ONE (11:00)
[2022-08-16 11:12] LABS: Basophils # (auto) 0 10 ^3/uL (0-0.2); Basophils % (auto) 0.3 % (0.0-2.0); Eosinophils # (auto) 0 10 ^3/uL (0-0.8); Hematocrit 34.5 % (41.0-53.0); Hemoglobin 10.8 g/dL (13.5-17.5); Lymphocytes # (auto) 0.8 10 ^3/uL (0.4-5.4); Lymphocytes % (auto) 5.6 % (10.0-50.0); Mean Corpuscular Hemoglobin 29.7 pg (28.0-32.0); Mean Corpuscular Hgb Conc. 31.3 g/dL (32.0-36.0); Mean Corpuscular Volume 95.1 fL (80.0-100.0); Monocytes # (auto) 0.4 10 ^3/uL (0-1.3); Monocytes % (auto) 2.7 % (0.0-12.0); Neutrophils # (auto) 13.8 10 ^3/uL (1.6-8.6); Neutrophils % (auto) 91.4 % (37.0-80.0); Red Blood Cells 3.63 10^6/uL (4.5-5.90)
[2022-08-16 11:49] LABS: BUN/Creatinine Ratio 18.8; Calcium 9.4 mg/dL (8.5-10.1); Potassium 4.7 mmol/L (3.5-5.1)
[2022-08-16 19:40] VITALS: BP 112/56
== END 2022-08-16 20:15 ==
LOC: ER 02:17 → EDBD 02:17 → ER 20:15
DX: A41.9 Sepsis, unspecified organism (principal); E80.7 Disorder of bilirubin metabolism, unspecified; R10.9 Unspecified abdominal pain; K57.30 Diverticulosis of large intestine without perforation or abscess without bleeding; D72.829 Elevated white blood cell count, unspecified; I10 Essential (primary) hypertension; E03.9 Hypothyroidism, unspecified; E78.5 Hyperlipidemia, unspecified; J44.9 Chronic obstructive pulmonary disease, unspecified; M10.9 Gout, unspecified; Z79.82 Long term (current) use of aspirin; Z79.899 Other long term (current) drug therapy; Z20.822 Contact with and (suspected) exposure to COVID-19
CPT/HCPCS: 36415; 71045; 74176; 74181; 80048; 80053; 81001; 83605; 83880; 84484; 85025; 87040; 87077; 87186; 87426; 93005; 96365; 96367; 96368; 96375; 99285; J0282; J2543; J3370; J7030; J7060

== ENCOUNTER 2023-04-08 14:08 | Inpatient (IN) | payer OTHER ==
[~2023-04-08] VITALS: Ht 175.3 cm; Wt 91.3 kg
[~2023-04-08 14:08] MED LIST changes: +ALBU2TAB11 PO; -ALBU2TAB4 PO
[2023-04-08] MEDS ORDERED: SODIUM CHLORIDE 0.9% 1,000 ML IV ONE ×2 (14:15→18:30)
[2023-04-08] MEDS ORDERED: ASPirin 325 MG TAB PO ONE (14:15)
[2023-04-08 14:59] LABS: Basophils # (auto) 0.1 10 ^3/uL (0-0.2); Eosinophils # (auto) 0.5 10 ^3/uL (0-0.8); Eosinophils % (auto) 7.1 % (0.0-7.0); Hematocrit 45.2 % (41.0-53.0); Hemoglobin 14.7 g/dL (13.5-17.5); Lymphocytes # (auto) 0.8 10 ^3/uL (0.4-5.4); Lymphocytes % (auto) 12.6 % (10.0-50.0); Mean Corpuscular Hemoglobin 33.9 pg (28.0-32.0); Mean Corpuscular Hgb Conc. 32.6 g/dL (32.0-36.0); Mean Corpuscular Volume 103.9 fL (80.0-100.0); Monocytes # (auto) 0.6 10 ^3/uL (0-1.3); Monocytes % (auto) 9.1 % (0.0-12.0); Neutrophils # (auto) 4.6 10 ^3/uL (1.6-8.6); Neutrophils % (auto) 70.2 % (37.0-80.0); Nucleated Red Blood Cells % 0.4 %; Red Blood Cells 4.35 10^6/uL (4.5-5.90); Red Cell Distribution Width 20.2 % (11.8-14.3); White Blood Cell 6.5 10^3/uL (4.4-10.8)
[2023-04-08 15:21] LABS: Albumin 3.2 g/dL (3.4-5.0); Calcium 12.8 mg/dL (8.5-10.1); Potassium 5.3 mmol/L (3.5-5.1)
[2023-04-08 15:25] LABS: INR 1.17 (0.9-1.15); Prothrombin Time 12.2 sec (9.3-11.8)
[2023-04-08 15:26] LABS: BUN/Creatinine Ratio 21.5 (10.0-20.0); Bilirubin, Total 2.2 mg/dL (0.2-1.0); Total Protein 7.1 g/dL (6.4-8.2)
[2023-04-08 15:30] VITALS: PULSE 111; RESP 20
[2023-04-08 15:40] LABS: Urine Bacteria FEW /hpf (None Seen); Urine Blood Negative /uL (Negative); Urine Clarity Clear (Clear); Urine Color Yellow (Yellow); Urine Protein, UAD TRACE (Negative); Urine Specific Gravity 1.022 (1.001-1.035); Urine WBC 3 /hpf (0 - 3); Urine pH 5.5 (5.0-8.0)
[2023-04-08] MEDS ORDERED: CALCIUM GLUC 1,000mg/50ml-NS 50 ML IV ONE (16:00)
[2023-04-08] MEDS ORDERED: DEXTROSE (50%) 50ML SYRG IV ONE (16:00)
[2023-04-08] MEDS ORDERED: FUROSEMIDE 20 MG/2 ML VIAL IV ONE (16:00)
[2023-04-08] MEDS ORDERED: SODIUM BICARBONATE 8.4% INJ 50ML SYRINGE IV ONE (16:00)
[2023-04-08] MEDS ORDERED: InsuLIN REG 1unit/0.01ml Soln (100units/ml) IV ONE (16:00)
[2023-04-08] MEDS ORDERED: ALBUTEROL SULF 2.5 MG/0.5ML(0.5%) NEB SOLN NEB ONE (16:00)
[2023-04-08] MEDS ORDERED: SODIUM ZIRCONIUM CYCL 10 GM PAK PO ONE (16:00)
[2023-04-08] MEDS ORDERED: DEXTROSE 50% SYRINGE 0 ML IV ONE (16:29)
[2023-04-08 20:04] LABS: Lactic Acid w/Reflex 8.4 mmol/L (0.4-2.0)
[2023-04-08] MEDS ORDERED: ONDANSETRON HCL 4 MG/2 ML VIAL IV PRN (21:00)
[2023-04-08] MEDS ORDERED: NITROGLYCERIN 0.4 MG SL TAB SL PRN (21:00)
[2023-04-08] MEDS ORDERED: MORPHINE SULFATE INJ 2 MG/ml SYRG IV PRN (21:00)
[2023-04-08] MEDS ORDERED: cefTRIAXone 1GM/50ML D5W 50 ML IV ONE (21:00)
[2023-04-08] MEDS ORDERED: PHENYLEPHRINE IV 250 ML IV ONE (21:13)
[2023-04-08] MEDS: PHENYLEPHRINE IV 250 ML IV SCH (21:21)
[2023-04-08] MEDS: ATORVASTATIN 20 MG TAB PO SCH (21:37)
[2023-04-08 22:43] LABS: Calcium 11.1 mg/dL (8.5-10.1); Potassium 3.8 mmol/L (3.5-5.1)
[2023-04-08 22:46] LABS: BUN/Creatinine Ratio 20.6 (10.0-20.0)
[2023-04-09] VITALS (62 sets, daily range): BP systolic 75–121; BP diastolic 43–83; PULSE 65–94; RESP 10–19; TEMP 97.9–98.5; O2SAT 82–100
[2023-04-09] MEDS: LEVOTHYROXINE SODIUM 50 MCG TAB PO SCH (05:48)
[2023-04-09] MEDS: PHENYLEPHRINE IV 250 ML IV SCH ×7 (05:48→21:20)
[2023-04-09 07:31] LABS: Basophils # (auto) 0.1 10 ^3/uL (0-0.2); Basophils % (auto) 1.1 % (0.0-2.0); Eosinophils # (auto) 0 10 ^3/uL (0-0.8); Hemoglobin 12.3 g/dL (13.5-17.5); Mean Corpuscular Volume 102.7 fL (80.0-100.0); Monocytes # (auto) 1.4 10 ^3/uL (0-1.3); Nucleated Red Blood Cells % 0.2 %
[2023-04-09 07:33] LABS: Eosinophils % (auto) 0.4 % (0.0-7.0); Hematocrit 36.7 % (41.0-53.0); Lymphocytes # (auto) 1.1 10 ^3/uL (0.4-5.4); Lymphocytes % (auto) 12.5 % (10.0-50.0); Mean Corpuscular Hemoglobin 34.5 pg (28.0-32.0); Mean Corpuscular Hgb Conc. 33.5 g/dL (32.0-36.0); Monocytes % (auto) 14.8 % (0.0-12.0); Neutrophils # (auto) 6.5 10 ^3/uL (1.6-8.6); Neutrophils % (auto) 71.2 % (37.0-80.0); Red Blood Cells 3.57 10^6/uL (4.5-5.90); Red Cell Distribution Width 20.5 % (11.8-14.3); White Blood Cell 9.1 10^3/uL (4.4-10.8)
[2023-04-09 07:47] LABS: Albumin 2.6 g/dL (3.4-5.0); Calcium 10.8 mg/dL (8.5-10.1); Potassium 4.2 mmol/L (3.5-5.1)
[2023-04-09 07:50] LABS: BUN/Creatinine Ratio 20.2 (10.0-20.0); Bilirubin, Total 1.3 mg/dL (0.2-1.0); Total Protein 6.6 g/dL (6.4-8.2)
[2023-04-09] MEDS ORDERED: cefTRIAXone 1GM/50ML D5W 50 ML IV SCH (09:00)
[2023-04-09] MEDS: ENOXAPARIN SOD 30 MG/0.3 ML SYRINGE SC SCH (09:40)
[2023-04-09] MEDS ORDERED: PANTOPRAZOLE 40 MG TAB PO SCH (10:00)
[2023-04-09] MEDS ORDERED: ACET250T20 PO (10:08)
[2023-04-09] MEDS ORDERED: ALLO300T2 PO (10:21)
[2023-04-09] MEDS ORDERED: CHOL200021 PO (10:21)
[2023-04-09] MEDS ORDERED: POLY335015 PO (10:21)
[2023-04-09] MEDS ORDERED: SOD CHL 0.45% 1,000 ML IV SCH ×3 (10:45→16:30)
[2023-04-09] MEDS ORDERED: VANCOMYCIN PER PHARMACY 0 MG IV SCH (11:00)
[2023-04-09] MEDS ORDERED: VANCOMYCIN 1GM/250ML 250 ML IV ONE (11:15)
[2023-04-09] MEDS ORDERED: PIPERACILLIN-TAZOB 3.375GM 100 ML IV SCH (12:00)
[2023-04-09] MEDS: SOD CHL 0.45% 1,000 ML IV SCH ×2 (13:06→18:45)
[2023-04-09 14:24] LABS: Urine Bacteria FEW /hpf (None Seen); Urine Blood 1+ /uL (Negative); Urine Clarity Clear (Clear); Urine Protein, UAD Negative (Negative); Urine Specific Gravity 1.015 (1.001-1.035); Urine Urobilinogen Normal (Negative); Urine WBC 4 /hpf (0 - 3); Urine pH 5.5 (5.0-8.0)
[2023-04-09 14:29] LABS: Urine Color Straw (Yellow)
[2023-04-09] MEDS: NOREPINEPHRINE 8 MG/250ML KIT 250 ML IV SCH (14:30)
[2023-04-09] MEDS: PIPERACILLIN-TAZOB 3.375GM 100 ML IV SCH (20:04)
[2023-04-09] MEDS: ATORVASTATIN 20 MG TAB PO SCH (20:05)
[2023-04-10] VITALS (99 sets, daily range): BP systolic 79–123; BP diastolic 47–92; PULSE 64–99; RESP 10–22; TEMP 98.2–99; O2SAT 96–100
[2023-04-10] MEDS: PHENYLEPHRINE IV 250 ML IV SCH ×3 (01:00→09:19)
[2023-04-10] MEDS: SOD CHL 0.45% 1,000 ML IV SCH ×3 (01:59→18:57)
[2023-04-10 04:06] LABS: Hematocrit 40.9 % (41.0-53.0); Hemoglobin 13.3 g/dL (13.5-17.5); Mean Corpuscular Hemoglobin 34.9 pg (28.0-32.0); Mean Corpuscular Hgb Conc. 32.6 g/dL (32.0-36.0); Mean Corpuscular Volume 107.2 fL (80.0-100.0); Red Blood Cells 3.81 10^6/uL (4.5-5.90); White Blood Cell 9.7 10^3/uL (4.4-10.8)
[2023-04-10 04:13] LABS: Basophils % (manual) 0 (0.0-2.0); Blast Cells 0; Myelocytes % 0; Promyelocytes % 0; Reactive Lymphocytes 0
[2023-04-10] MEDS: PIPERACILLIN-TAZOB 3.375GM 100 ML IV SCH (05:23)
[2023-04-10] MEDS: LEVOTHYROXINE SODIUM 50 MCG TAB PO SCH (05:23)
[2023-04-10] MEDS: NOREPINEPHRINE 8 MG/250ML KIT 250 ML IV SCH ×2 (07:22→13:44)
[2023-04-10] MEDS: VANCOMYCIN 1GM/250ML 250 ML IV SCH (09:08)
[2023-04-10] MEDS: PANTOPRAZOLE 40 MG/10 ML VIAL INJ IV SCH (09:09)
[2023-04-10] MEDS: ENOXAPARIN SOD 30 MG/0.3 ML SYRINGE SC SCH (09:09)
[2023-04-10 10:06] LABS: Band Neutrophils % (manual) 3; Eosinophils % (manual) 2 (0-7); Lymphocytes % (manual) 15 (10.0-50.0); Metamyelocytes % 1; Monocytes % (manual) 8 (0-12)
[2023-04-10 10:07] LABS: Anisocytosis Slight; Macrocytosis Moderate; Platelet Estimate Adequate
[2023-04-10 10:43] LABS: Potassium 3.8 mmol/L (3.5-5.1)
[2023-04-10 10:49] LABS: Albumin 2.1 g/dL (3.4-5.0); BUN/Creatinine Ratio 17.7 (10.0-20.0); Calcium 9.6 mg/dL (8.5-10.1); Total Protein 5.7 g/dL (6.4-8.2)
[2023-04-10] MEDS ORDERED: LIDOCAINE 1% (LOCAL ANESTH.) PF 5ml SDV ID ONE (13:00)
[2023-04-10] MEDS: MEROPENEM 1GM IVPB 100 ML IV SCH ×2 (13:18→20:48)
[2023-04-10] MEDS: ATORVASTATIN 20 MG TAB PO SCH (20:47)
[2023-04-10] MEDS: SODIUM CHLOR 0.9% PF (SALINE LOCK) 10ML VIAL/SYR IV SCH (20:49)
[2023-04-11] VITALS (91 sets, daily range): BP systolic 80–121; BP diastolic 52–82; PULSE 85–113; RESP 13–25; TEMP 98.4–99; O2SAT 94–100
[2023-04-11] MEDS: SOD CHL 0.45% 1,000 ML IV SCH ×3 (01:34→17:49)
[2023-04-11] MEDS: NOREPINEPHRINE 8 MG/250ML KIT 250 ML IV SCH ×2 (02:59→17:00)
[2023-04-11 04:23] LABS: Hemoglobin 11.7 g/dL (13.5-17.5)
[2023-04-11 04:26] LABS: Hematocrit 34.6 % (41.0-53.0); Mean Corpuscular Hemoglobin 34.4 pg (28.0-32.0); Mean Corpuscular Hgb Conc. 33.8 g/dL (32.0-36.0); Mean Corpuscular Volume 101.7 fL (80.0-100.0); Red Blood Cells 3.41 10^6/uL (4.5-5.90); White Blood Cell 5.9 10^3/uL (4.4-10.8)
[2023-04-11 04:27] LABS: Potassium 3.4 mmol/L (3.5-5.1)
[2023-04-11 04:34] LABS: Red Cell Distribution Width 20.3 % (11.8-14.3)
[2023-04-11 04:35] LABS: BUN/Creatinine Ratio 15.6 (10.0-20.0); Basophils % (manual) 0 (0.0-2.0); Blast Cells 0; Calcium 9.7 mg/dL (8.5-10.1); Metamyelocytes % 0; Myelocytes % 0; Promyelocytes % 0; Reactive Lymphocytes 0
[2023-04-11] MEDS: MEROPENEM 1GM IVPB 100 ML IV SCH ×3 (05:35→22:02)
[2023-04-11] MEDS: LEVOTHYROXINE SODIUM 50 MCG TAB PO SCH (06:12)
[2023-04-11] MEDS: PHENYLEPHRINE IV 250 ML IV SCH ×2 (06:13→07:18)
[2023-04-11] MEDS: SODIUM CHLOR 0.9% PF (SALINE LOCK) 10ML VIAL/SYR IV SCH ×2 (07:18→22:01)
[2023-04-11] MEDS: ENOXAPARIN SOD 40 MG/0.4 ML SYRINGE SC SCH (07:53)
[2023-04-11] MEDS: VANCOMYCIN 1GM/250ML 250 ML IV SCH (07:53)
[2023-04-11] MEDS: PANTOPRAZOLE 40 MG/10 ML VIAL INJ IV SCH (07:53)
[2023-04-11] MEDS ORDERED: SODIUM CHLORIDE 0.9% 1,000 ML IV ONE (09:30)
[2023-04-11 09:35] LABS: Band Neutrophils % (manual) 3; Eosinophils % (manual) 1 (0-7); Lymphocytes % (manual) 18 (10.0-50.0); Monocytes % (manual) 9 (0-12)
[2023-04-11 09:36] LABS: Anisocytosis Slight; Macrocytosis Slight; Platelet Estimate Adequate
[2023-04-11] MEDS: POTASSIUM CHL 20MEQ/100ML 100 ML IV SCH ×2 (09:53→11:22)
[2023-04-11] MEDS: ATORVASTATIN 20 MG TAB PO SCH (22:02)
[2023-04-11 22:40] LABS: Lactic Acid w/Reflex 2.7 mmol/L (0.4-2.0)
[2023-04-12] VITALS (99 sets, daily range): BP systolic 71–115; BP diastolic 37–87; PULSE 10–123; RESP 13–23; TEMP 98.1–99.3; O2SAT 95–99
[2023-04-12] MEDS: PHENYLEPHRINE IV 250 ML IV SCH ×3 (00:15→06:53)
[2023-04-12] MEDS: SOD CHL 0.45% 1,000 ML IV SCH ×2 (01:30→13:30)
[2023-04-12 04:34] LABS: Hematocrit 33.5 % (41.0-53.0); Mean Corpuscular Hgb Conc. 34.2 g/dL (32.0-36.0); White Blood Cell 5.1 10^3/uL (4.4-10.8)
[2023-04-12 04:35] LABS: Hemoglobin 11.5 g/dL (13.5-17.5); Mean Corpuscular Hemoglobin 34.6 pg (28.0-32.0); Mean Corpuscular Volume 101.1 fL (80.0-100.0); Red Blood Cells 3.31 10^6/uL (4.5-5.90)
[2023-04-12 04:43] LABS: Potassium 3.7 mmol/L (3.5-5.1)
[2023-04-12 04:52] LABS: BUN/Creatinine Ratio 11.7 (10.0-20.0); Calcium 9.2 mg/dL (8.5-10.1)
[2023-04-12 05:29] LABS: Red Cell Distribution Width 20.1 % (11.8-14.3)
[2023-04-12 05:30] LABS: Basophils % (manual) 0 (0.0-2.0); Blast Cells 0; Metamyelocytes % 0; Promyelocytes % 0; Reactive Lymphocytes 0
[2023-04-12] MEDS: MEROPENEM 1GM IVPB 100 ML IV SCH ×3 (06:07→21:49)
[2023-04-12] MEDS: SODIUM CHLOR 0.9% PF (SALINE LOCK) 10ML VIAL/SYR IV SCH ×2 (06:53→21:49)
[2023-04-12 07:42] LABS: Band Neutrophils % (manual) 1; Eosinophils % (manual) 1 (0-7); Lymphocytes % (manual) 10 (10.0-50.0); Monocytes % (manual) 7 (0-12); Myelocytes % 1
[2023-04-12] MEDS: PANTOPRAZOLE 40 MG/10 ML VIAL INJ IV SCH (07:42)
[2023-04-12] MEDS: ENOXAPARIN SOD 40 MG/0.4 ML SYRINGE SC SCH (07:42)
[2023-04-12] MEDS: LEVOTHYROXINE SODIUM 50 MCG TAB PO SCH (07:43)
[2023-04-12 07:52] LABS: Anisocytosis Slight; Platelet Estimate Adequate
[2023-04-12 07:57] LABS: Macrocytosis Moderate
[2023-04-12] MEDS ORDERED: SODIUM CHLORIDE 0.9% 1,000 ML IV ONE (08:00)
[2023-04-12] MEDS: MIDODRINE HCL 10 MG TAB PO SCH ×2 (11:14→18:07)
[2023-04-12] MEDS: NOREPINEPHRINE 8 MG/250ML KIT 250 ML IV SCH (11:46)
[2023-04-12] MEDS: VANCOMYCIN 1GM/250ML 250 ML IV SCH (12:20)
[2023-04-12] MEDS ORDERED: POTASSIUM EFFERVESENT TAB 25 MEQ PO ONE (15:15)
[2023-04-12] MEDS ORDERED: SODIUM BICARBONATE 50ML VIAL 150 ML in D5W 5% 1,000 ML IV ONE (15:15)
[2023-04-12] MEDS: POTASSIUM CHL 20MEQ/100ML 100 ML IV SCH ×2 (16:14→18:04)
[2023-04-12 16:49] LABS: Base Excess -10.7 mmol/L (-2.0-2.0)
[2023-04-12] MEDS: ATORVASTATIN 20 MG TAB PO SCH (21:58)
[2023-04-13] VITALS (98 sets, daily range): BP systolic 73–127; BP diastolic 47–79; PULSE 76–108; RESP 11–23; TEMP 97.8–98.9; O2SAT 92–100
[2023-04-13] MEDS: PHENYLEPHRINE IV 250 ML IV SCH ×3 (01:15→17:31)
[2023-04-13 03:57] LABS: Hemoglobin 10.7 g/dL (13.5-17.5); Mean Corpuscular Volume 99.7 fL (80.0-100.0)
[2023-04-13 03:58] LABS: BUN/Creatinine Ratio 11.5 (10.0-20.0); Calcium 9.3 mg/dL (8.5-10.1); Potassium 3.7 mmol/L (3.5-5.1)
[2023-04-13 03:59] LABS: Mean Corpuscular Hemoglobin 34.4 pg (28.0-32.0); Mean Corpuscular Hgb Conc. 34.5 g/dL (32.0-36.0)
[2023-04-13] MEDS: NOREPINEPHRINE 8 MG/250ML KIT 250 ML IV SCH (04:34)
[2023-04-13 04:49] LABS: Red Cell Distribution Width 20.2 % (11.8-14.3)
[2023-04-13 04:51] LABS: Basophils % (manual) 0 (0.0-2.0); Blast Cells 0; Metamyelocytes % 0; Myelocytes % 0; Promyelocytes % 0; Reactive Lymphocytes 0
[2023-04-13] MEDS: MEROPENEM 1GM IVPB 100 ML IV SCH ×3 (05:24→22:55)
[2023-04-13] MEDS: MIDODRINE HCL 10 MG TAB PO SCH ×3 (05:28→17:32)
[2023-04-13 06:20] LABS: Anisocytosis Moderate; Band Neutrophils % (manual) 3; Eosinophils % (manual) 1 (0-7); Lymphocytes % (manual) 7 (10.0-50.0); Macrocytosis Slight; Monocytes % (manual) 6 (0-12); Platelet Estimate Decreased
[2023-04-13 06:21] LABS: Polychromasia Slight
[2023-04-13] MEDS: SODIUM CHLOR 0.9% PF (SALINE LOCK) 10ML VIAL/SYR IV SCH ×2 (07:10→17:31)
[2023-04-13] MEDS: ENOXAPARIN SOD 40 MG/0.4 ML SYRINGE SC SCH (07:14)
[2023-04-13] MEDS: LEVOTHYROXINE SODIUM 50 MCG TAB PO SCH (07:14)
[2023-04-13] MEDS: PANTOPRAZOLE 40 MG/10 ML VIAL INJ IV SCH (07:14)
[2023-04-13] MEDS: VANCOMYCIN 1GM/250ML 250 ML IV SCH (07:15)
[2023-04-13] MEDS ORDERED: SODIUM BICARBONATE 50ML VIAL 150 ML in D5W 5% 1,000 ML IV ONE (12:45)
[2023-04-13] MEDS: POTASSIUM CHL 20MEQ/100ML 100 ML IV SCH ×2 (12:48→14:17)
[2023-04-13] MEDS: ATORVASTATIN 20 MG TAB PO SCH (17:31)
[2023-04-14] VITALS (81 sets, daily range): BP systolic 72–153; BP diastolic 42–96; PULSE 82–106; RESP 12–21; TEMP 97.9–98.7; O2SAT 90–99
[2023-04-14 04:07] LABS: Hemoglobin 10.9 g/dL (13.5-17.5)
[2023-04-14 04:09] LABS: Hematocrit 31.3 % (41.0-53.0); Mean Corpuscular Hemoglobin 34.6 pg (28.0-32.0); Mean Corpuscular Hgb Conc. 34.7 g/dL (32.0-36.0); Mean Corpuscular Volume 99.5 fL (80.0-100.0); Red Blood Cells 3.15 10^6/uL (4.5-5.90); White Blood Cell 4.4 10^3/uL (4.4-10.8)
[2023-04-14 04:11] LABS: Red Cell Distribution Width 20.2 % (11.8-14.3)
[2023-04-14 04:12] LABS: Basophils % (manual) 0 (0.0-2.0); Blast Cells 0; Metamyelocytes % 0; Myelocytes % 0; Promyelocytes % 0; Reactive Lymphocytes 0
[2023-04-14 04:27] LABS: BUN/Creatinine Ratio 9.6 (10.0-20.0); Calcium 9.5 mg/dL (8.5-10.1); Potassium 3.8 mmol/L (3.5-5.1)
[2023-04-14 05:19] LABS: Band Neutrophils % (manual) 3; Eosinophils % (manual) 1 (0-7)
[2023-04-14 05:20] LABS: Anisocytosis Slight; Lymphocytes % (manual) 13 (10.0-50.0); Monocytes % (manual) 14 (0-12); Platelet Estimate Decreased; Stomatocytes Moderate
[2023-04-14] MEDS: MEROPENEM 1GM IVPB 100 ML IV SCH ×3 (06:28→22:04)
[2023-04-14] MEDS: LEVOTHYROXINE SODIUM 50 MCG TAB PO SCH (06:29)
[2023-04-14] MEDS: MIDODRINE HCL 10 MG TAB PO SCH ×3 (06:29→18:00)
[2023-04-14] MEDS: SODIUM CHLOR 0.9% PF (SALINE LOCK) 10ML VIAL/SYR IV SCH ×2 (10:00→22:04)
[2023-04-14] MEDS: PANTOPRAZOLE 40 MG/10 ML VIAL INJ IV SCH (10:14)
[2023-04-14] MEDS: ENOXAPARIN SOD 40 MG/0.4 ML SYRINGE SC SCH (10:14)
[2023-04-14] MEDS: VANCOMYCIN 1GM/250ML 250 ML IV SCH (10:15)
[2023-04-14] MEDS: PHENYLEPHRINE IV 250 ML IV SCH (10:35)
[2023-04-14] MEDS ORDERED: LEVOTHYROXINE SODIUM 88 MCG TAB PO ONE (11:15)
[2023-04-14] MEDS: NOREPINEPHRINE 8 MG/250ML KIT 250 ML IV SCH (11:45)
[2023-04-14 12:19] LABS: Free T4 (Free Thyroxine) 1.61 ng/dL (0.89-1.76)
[2023-04-14 12:20] LABS: Free T3 1.92 pg/mL (2.3-4.2)
[2023-04-14] MEDS ORDERED: POTASSIUM CHL 10 Meq TABLET PO SCH (12:45)
[2023-04-14] MEDS ORDERED: FUROSEMIDE 20 MG/2 ML VIAL IV SCH (12:45)
[2023-04-14] MEDS: Ensure HIGH Protein Chocolate 8oz Bottle PO SCH (18:46)
[2023-04-14] MEDS: ATORVASTATIN 20 MG TAB PO SCH (22:05)
[2023-04-15] VITALS (20 sets, daily range): BP systolic 89–122; BP diastolic 30–95; PULSE 72–116; RESP 12–21; TEMP 98.4–99; O2SAT 94–100
[2023-04-15 05:02] LABS: Hemoglobin 10.5 g/dL (13.5-17.5); Mean Corpuscular Hemoglobin 33.7 pg (28.0-32.0); Mean Corpuscular Hgb Conc. 33.8 g/dL (32.0-36.0); Mean Corpuscular Volume 99.6 fL (80.0-100.0); Red Blood Cells 3.12 10^6/uL (4.5-5.90); Red Cell Distribution Width 19.9 % (11.8-14.3); White Blood Cell 3.8 10^3/uL (4.4-10.8)
[2023-04-15 05:17] LABS: Band Neutrophils % (manual) 0; Basophils % (manual) 0 (0.0-2.0); Blast Cells 0; Metamyelocytes % 0; Myelocytes % 0; Promyelocytes % 0; Reactive Lymphocytes 0
[2023-04-15 05:23] LABS: Potassium 4.1 mmol/L (3.5-5.1)
[2023-04-15 05:32] LABS: BUN/Creatinine Ratio 12.9 (10.0-20.0); Calcium 9.6 mg/dL (8.5-10.1)
[2023-04-15] MEDS: MIDODRINE HCL 10 MG TAB PO SCH (06:57)
[2023-04-15] MEDS: MEROPENEM 1GM IVPB 100 ML IV SCH ×3 (06:57→21:55)
[2023-04-15] MEDS: LEVOTHYROXINE SODIUM 88 MCG TAB PO SCH ×2 (06:57→08:19)
[2023-04-15] MEDS: ENOXAPARIN SOD 40 MG/0.4 ML SYRINGE SC SCH (10:27)
[2023-04-15] MEDS: PANTOPRAZOLE 40 MG/10 ML VIAL INJ IV SCH (10:28)
[2023-04-15] MEDS: SODIUM CHLOR 0.9% PF (SALINE LOCK) 10ML VIAL/SYR IV SCH ×2 (10:29→21:55)
[2023-04-15] MEDS: Ensure HIGH Protein Chocolate 8oz Bottle PO SCH ×2 (10:29→18:00)
[2023-04-15 12:23] LABS: Eosinophils % (manual) 2 (0-7); Lymphocytes % (manual) 16 (10.0-50.0); Monocytes % (manual) 8 (0-12)
[2023-04-15 12:24] LABS: Anisocytosis Slight
[2023-04-15 12:25] LABS: Platelet Estimate Decreased
[2023-04-15] MEDS ORDERED: LORazepam 2MG/ML-1ML VIAL IV PRN (20:30)
[2023-04-15] MEDS: ATORVASTATIN 20 MG TAB PO SCH (21:56)
[2023-04-15 22:18] LABS: Folate (Folic Acid) 6.26 ng/mL (5.38-24)
[2023-04-16] VITALS (8 sets, daily range): BP systolic 61–117; BP diastolic 58–63; PULSE 74–117; RESP 15–21; TEMP 97–98.5; O2SAT 95–98
[2023-04-16] MEDS: MEROPENEM 1GM IVPB 100 ML IV SCH ×3 (05:32→22:25)
[2023-04-16] MEDS: LEVOTHYROXINE SODIUM 100 MCG TAB PO SCH (05:37)
[2023-04-16 07:48] LABS: BUN/Creatinine Ratio 13.8 (10.0-20.0)
[2023-04-16] MEDS: Ensure HIGH Protein Chocolate 8oz Bottle PO SCH ×2 (08:00→19:00)
[2023-04-16] MEDS: PANTOPRAZOLE 40 MG/10 ML VIAL INJ IV SCH (09:50)
[2023-04-16] MEDS: ENOXAPARIN SOD 40 MG/0.4 ML SYRINGE SC SCH (09:51)
[2023-04-16] MEDS: SODIUM CHLOR 0.9% PF (SALINE LOCK) 10ML VIAL/SYR IV SCH ×2 (10:00→22:25)
[2023-04-16] MEDS ORDERED: D5W 5% 1,000 ML IV ONE (10:45)
[2023-04-16 10:51] LABS: Hematocrit 35.3 % (41.0-53.0); Hemoglobin 11.7 g/dL (13.5-17.5); Mean Corpuscular Hemoglobin 33.5 pg (28.0-32.0); Mean Corpuscular Hgb Conc. 33.2 g/dL (32.0-36.0); Mean Corpuscular Volume 100.9 fL (80.0-100.0); Red Cell Distribution Width 20.2 % (11.8-14.3); White Blood Cell 4.8 10^3/uL (4.4-10.8)
[2023-04-16 10:58] LABS: Basophils % (manual) 0 (0.0-2.0); Blast Cells 0; Metamyelocytes % 0; Myelocytes % 0; Promyelocytes % 0; Reactive Lymphocytes 0
[2023-04-16 12:09] LABS: Band Neutrophils % (manual) 1; Eosinophils % (manual) 1 (0-7); Lymphocytes % (manual) 15 (10.0-50.0); Monocytes % (manual) 9 (0-12); Platelet Estimate Decreased
[2023-04-16] MEDS: ATORVASTATIN 20 MG TAB PO SCH (22:00)
[2023-04-17 05:00] VITALS: BP 139/88; PULSE 108; RESP 20; TEMP 97.8; O2SAT 97
[2023-04-17] MEDS: MEROPENEM 1GM IVPB 100 ML IV SCH ×3 (05:52→23:57)
[2023-04-17] MEDS: LEVOTHYROXINE SODIUM 100 MCG TAB PO SCH (05:52)
[2023-04-17] MEDS: Ensure HIGH Protein Chocolate 8oz Bottle PO SCH ×2 (08:00→18:00)
[2023-04-17 09:00] VITALS: BP 109/58; PULSE 107; RESP 20; TEMP 98.3; O2SAT 97
[2023-04-17] MEDS: PANTOPRAZOLE 40 MG/10 ML VIAL INJ IV SCH (09:22)
[2023-04-17] MEDS: ENOXAPARIN SOD 40 MG/0.4 ML SYRINGE SC SCH (09:23)
[2023-04-17] MEDS: SODIUM CHLOR 0.9% PF (SALINE LOCK) 10ML VIAL/SYR IV SCH ×2 (09:23→23:57)
[2023-04-17 13:00] VITALS: BP_SYST 92; BP_SYST 95; BP_DIAS 60; BP_DIAS 69; PULSE 102; PULSE 113; RESP 18; RESP 19; TEMP 98.4; TEMP 98.7; O2SAT 100; O2SAT 95
[2023-04-17 17:00] VITALS: BP 92/60; PULSE 113; RESP 19; TEMP 98.4; O2SAT 95
[2023-04-17 20:00] VITALS: RESP 20; O2SAT 98
[2023-04-17 22:00] VITALS: BP 97/50; PULSE 120; RESP 20; TEMP 98.7; O2SAT 98
[2023-04-18] MEDS: ATORVASTATIN 20 MG TAB PO SCH ×2 (01:30→21:14)
[2023-04-18 04:49] VITALS: BP 107/68; PULSE 108; RESP 22; TEMP 98.8; O2SAT 96
[2023-04-18] MEDS: MEROPENEM 1GM IVPB 100 ML IV SCH ×3 (05:54→21:13)
[2023-04-18] MEDS: LEVOTHYROXINE SODIUM 100 MCG TAB PO SCH (05:54)
[2023-04-18] MEDS ORDERED: Jevity 1.2 Cal/Fiber 1 Liter GT SCH (08:45)
[2023-04-18 09:06] VITALS: BP 116/60; PULSE 127; RESP 24; TEMP 97.6; O2SAT 96
[2023-04-18] MEDS: SODIUM CHLOR 0.9% PF (SALINE LOCK) 10ML VIAL/SYR IV SCH ×2 (10:12→21:16)
[2023-04-18] MEDS: ENOXAPARIN SOD 40 MG/0.4 ML SYRINGE SC SCH (10:12)
[2023-04-18] MEDS: PANTOPRAZOLE 40 MG/10 ML VIAL INJ IV SCH (10:12)
[2023-04-18 10:42] LABS: Basophils # (auto) 0.1 10 ^3/uL (0-0.2); Eosinophils # (auto) 0.1 10 ^3/uL (0-0.8); Hemoglobin 11.1 g/dL (13.5-17.5); Lymphocytes # (auto) 0.7 10 ^3/uL (0.4-5.4); Mean Corpuscular Hemoglobin 33.5 pg (28.0-32.0)
[2023-04-18 10:43] LABS: Basophils % (auto) 1.4 % (0.0-2.0); Eosinophils % (auto) 1.6 % (0.0-7.0); Hematocrit 33.3 % (41.0-53.0); Lymphocytes % (auto) 15.1 % (10.0-50.0); Mean Corpuscular Hgb Conc. 33.3 g/dL (32.0-36.0); Mean Corpuscular Volume 100.8 fL (80.0-100.0); Monocytes # (auto) 0.6 10 ^3/uL (0-1.3); Monocytes % (auto) 12.1 % (0.0-12.0); Neutrophils # (auto) 3.3 10 ^3/uL (1.6-8.6); Neutrophils % (auto) 69.8 % (37.0-80.0); Nucleated Red Blood Cells % 0.2 %; Red Cell Distribution Width 19.3 % (11.8-14.3); White Blood Cell 4.8 10^3/uL (4.4-10.8)
[2023-04-18 11:14] LABS: Albumin 1.8 g/dL (3.4-5.0); BUN/Creatinine Ratio 14.8 (10.0-20.0); Calcium 9.5 mg/dL (8.5-10.1)
[2023-04-18 11:27] LABS: INR 1.59 (0.9-1.15); Prothrombin Time 16.2 sec (9.3-11.8)
[2023-04-18 11:28] LABS: Total Protein 4.9 g/dL (6.4-8.2)
[2023-04-18 13:00] VITALS: BP 100/58; PULSE 128; RESP 22; TEMP 99; O2SAT 96
[2023-04-18] MEDS: ACETAMINOPHEN 325 MG TAB PO PRN ×2 (13:27→21:14)
[2023-04-18 17:00] VITALS: BP 77/44; PULSE 113; RESP 20; TEMP 98.1; O2SAT 96
[2023-04-18] MEDS: SODIUM CHLORIDE 0.9% 1,000 ML IV SCH (18:12)
[2023-04-18 20:00] VITALS: PULSE 120; RESP 19; O2SAT 95
[2023-04-18 20:26] LABS: Lactic Acid w/Reflex 3.8 mmol/L (0.4-2.0)
[2023-04-18 22:00] VITALS: BP 92/59; PULSE 120; RESP 19; TEMP 97.5; O2SAT 95
[2023-04-19] VITALS (57 sets, daily range): BP systolic 54–212; BP diastolic 33–181; PULSE 95–147; RESP 11–24; TEMP 97.1–101.4; O2SAT 87–100
[2023-04-19] MEDS: SODIUM CHLORIDE 0.9% 1,000 ML IV SCH ×2 (03:15→15:45)
[2023-04-19 03:53] LABS: Urine Bacteria FEW /hpf (None Seen); Urine Blood 1+ /uL (Negative); Urine Clarity HAZY (Clear); Urine Color Orange (Yellow); Urine Protein, UAD 2+ (Negative); Urine Specific Gravity 1.025 (1.001-1.035); Urine WBC 8 /hpf (0 - 3)
[2023-04-19] MEDS: LEVOTHYROXINE SODIUM 100 MCG TAB PO SCH (05:22)
[2023-04-19] MEDS: MEROPENEM 1GM IVPB 100 ML IV SCH ×3 (05:22→21:18)
[2023-04-19] MEDS ORDERED: IOHEXOL 300 MG/ML 100ML BOTTLE IJ ONE (08:45)
[2023-04-19] MEDS: PANTOPRAZOLE 40 MG/10 ML VIAL INJ IV SCH (09:41)
[2023-04-19] MEDS: SODIUM CHLOR 0.9% PF (SALINE LOCK) 10ML VIAL/SYR IV SCH ×2 (09:42→21:18)
[2023-04-19] MEDS ORDERED: NOREPINEPHRINE 8 MG/250ML KIT 250 ML IV ONE (09:48)
[2023-04-19] MEDS: ENOXAPARIN SOD 40 MG/0.4 ML SYRINGE SC SCH (10:00)
[2023-04-19] MEDS: NOREPINEPHRINE 8 MG/250ML KIT 250 ML IV SCH (10:25)
[2023-04-19] MEDS: PHENYLEPHRINE IV 250 ML IV SCH ×3 (11:57→21:06)
[2023-04-19] MEDS: MORPHINE SULFATE INJ 2 MG/ml SYRG IV PRN (12:13)
[2023-04-19 13:16] LABS: Basophils # (auto) 0.1 10 ^3/uL (0-0.2); Hematocrit 32.8 % (41.0-53.0); Lymphocytes # (auto) 0.8 10 ^3/uL (0.4-5.4); Monocytes # (auto) 0.6 10 ^3/uL (0-1.3); Neutrophils % (auto) 75.5 % (37.0-80.0)
[2023-04-19 13:24] LABS: Basophils % (auto) 1.3 % (0.0-2.0); Eosinophils # (auto) 0 10 ^3/uL (0-0.8); Eosinophils % (auto) 0.8 % (0.0-7.0); Hemoglobin 10.8 g/dL (13.5-17.5); Lymphocytes % (auto) 13.4 % (10.0-50.0); Mean Corpuscular Hemoglobin 33.6 pg (28.0-32.0); Mean Corpuscular Hgb Conc. 33.1 g/dL (32.0-36.0); Mean Corpuscular Volume 101.7 fL (80.0-100.0); Neutrophils # (auto) 4.6 10 ^3/uL (1.6-8.6); Red Blood Cells 3.22 10^6/uL (4.5-5.90); Red Cell Distribution Width 18.5 % (11.8-14.3); White Blood Cell 6.2 10^3/uL (4.4-10.8)
[2023-04-19 13:30] LABS: Albumin 1.6 g/dL (3.4-5.0); Calcium 8.9 mg/dL (8.5-10.1); Potassium 3.8 mmol/L (3.5-5.1)
[2023-04-19 13:45] LABS: BUN/Creatinine Ratio 17.1 (10.0-20.0); Bilirubin, Total 7.6 mg/dL (0.2-1.0); Total Protein 4.6 g/dL (6.4-8.2)
[2023-04-19] MEDS: ALBUMIN 25% 100 ML IV SCH (15:58)
[2023-04-19] MEDS ORDERED: LORazepam 2MG/ML-1ML VIAL ONE (16:36)
[2023-04-19] MEDS ORDERED: AMIODARONE 450mg/250ml AE 250 ML IV ONE (16:52)
[2023-04-19] MEDS ORDERED: AMIODARONE 450mg/250ml AE 250 ML IV SCH (17:00)
[2023-04-19] MEDS ORDERED: AMIODARONE BOLUS KIT 100 ML IV ONE (17:00)
[2023-04-19] MEDS ORDERED: VANCOMYCIN PER PHARMACY 0 MG IV SCH (17:45)
[2023-04-19] MEDS: VANCOMYCIN 1GM/250ML 250 ML IV SCH (18:00)
[2023-04-19] MEDS: ATORVASTATIN 20 MG TAB PO SCH (21:18)
[2023-04-19] MEDS ORDERED: ALBUMIN 25% 100 ML IV SCH (22:00)
[2023-04-19] MEDS: AMIODARONE 450mg/250ml AE 250 ML IV SCH (23:03)
[2023-04-20] VITALS (75 sets, daily range): BP systolic 76–111; BP diastolic 40–69; PULSE 78–105; RESP 9–18; TEMP 98.3–99.6; O2SAT 97–100
[2023-04-20] MEDS: ALBUMIN 25% 100 ML IV SCH ×2 (03:28→16:14)
[2023-04-20 03:51] LABS: Basophils # (auto) 0.1 10 ^3/uL (0-0.2); Basophils % (auto) 0.8 % (0.0-2.0); Monocytes # (auto) 0.8 10 ^3/uL (0-1.3); Neutrophils # (auto) 9.2 10 ^3/uL (1.6-8.6)
[2023-04-20] MEDS: SODIUM CHLORIDE 0.9% 1,000 ML IV SCH ×5 (03:51→22:16)
[2023-04-20 03:53] LABS: Eosinophils # (auto) 0 10 ^3/uL (0-0.8); Eosinophils % (auto) 0.4 % (0.0-7.0); Hemoglobin 9.9 g/dL (13.5-17.5); Lymphocytes # (auto) 0.9 10 ^3/uL (0.4-5.4); Lymphocytes % (auto) 8.1 % (10.0-50.0); Mean Corpuscular Hemoglobin 33.7 pg (28.0-32.0); Mean Corpuscular Hgb Conc. 33.2 g/dL (32.0-36.0); Mean Corpuscular Volume 101.7 fL (80.0-100.0); Monocytes % (auto) 7.1 % (0.0-12.0); Neutrophils % (auto) 83.6 % (37.0-80.0); Red Blood Cells 2.95 10^6/uL (4.5-5.90); Red Cell Distribution Width 17.7 % (11.8-14.3)
[2023-04-20 04:08] LABS: BUN/Creatinine Ratio 15.9 (10.0-20.0); Calcium 8.8 mg/dL (8.5-10.1); Potassium 3.9 mmol/L (3.5-5.1)
[2023-04-20] MEDS: MEROPENEM 1GM IVPB 100 ML IV SCH ×3 (05:11→22:16)
[2023-04-20] MEDS: PHENYLEPHRINE IV 250 ML IV SCH ×5 (05:13→12:04)
[2023-04-20] MEDS: LEVOTHYROXINE SODIUM 100 MCG TAB PO SCH (07:00)
[2023-04-20] MEDS: ENOXAPARIN SOD 40 MG/0.4 ML SYRINGE SC SCH (09:22)
[2023-04-20] MEDS: PANTOPRAZOLE 40 MG/10 ML VIAL INJ IV SCH (09:23)
[2023-04-20] MEDS: MORPHINE SULFATE INJ 2 MG/ml SYRG IV PRN ×3 (09:26→22:18)
[2023-04-20] MEDS: SODIUM CHLOR 0.9% PF (SALINE LOCK) 10ML VIAL/SYR IV SCH ×2 (09:26→22:16)
[2023-04-20] MEDS: NOREPINEPHRINE 8 MG/250ML KIT 250 ML IV SCH (09:45)
[2023-04-20] MEDS ORDERED: PHENYLEPHRINE INJ 80 MG in SODIUM CHL 0.9% 242 ML IV SCH ×2 (13:15→13:45)
[2023-04-20 13:24] LABS: Albumin 1.8 g/dL (3.4-5.0); Calcium 6.9 mg/dL (8.5-10.1); Potassium 3.3 mmol/L (3.5-5.1)
[2023-04-20 13:30] LABS: BUN/Creatinine Ratio 16.5 (10.0-20.0); Total Protein 3.8 g/dL (6.4-8.2)
[2023-04-20] MEDS: PHENYLEPHRINE INJ 80 MG in SODIUM CHL 0.9% 242 ML IV SCH ×2 (14:16→22:16)
[2023-04-20] MEDS: AMIODARONE 450mg/250ml AE 250 ML IV SCH (15:41)
[2023-04-20] MEDS: VANCOMYCIN 1GM/250ML 250 ML IV SCH (18:03)
[2023-04-20] MEDS: ATORVASTATIN 20 MG TAB PO SCH (22:17)
[2023-04-21] VITALS (85 sets, daily range): BP systolic 64–109; BP diastolic 31–67; PULSE 84–114; RESP 8–14; TEMP 98.7–101.1; O2SAT 96–100
[2023-04-21] MEDS: NOREPINEPHRINE 8 MG/250ML KIT 250 ML IV SCH (00:18)
[2023-04-21] MEDS: ALBUMIN 25% 100 ML IV SCH (04:18)
[2023-04-21 04:38] LABS: INR 2.14 (0.9-1.15); Prothrombin Time 21.4 sec (9.3-11.8)
[2023-04-21] MEDS: AMIODARONE 450mg/250ml AE 250 ML IV SCH (05:16)
[2023-04-21] MEDS: MORPHINE SULFATE INJ 2 MG/ml SYRG IV PRN ×5 (05:21→23:53)
[2023-04-21] MEDS: MEROPENEM 1GM IVPB 100 ML IV SCH (05:55)
[2023-04-21] MEDS: LEVOTHYROXINE SODIUM 100 MCG TAB PO SCH (06:34)
[2023-04-21] MEDS ORDERED: MORPHINE SULFATE INJ 2 MG/ml SYRG IV PRN (10:30)
[2023-04-21] MEDS ORDERED: ONDANSETRON HCL 4 MG/2 ML VIAL IV PRN (10:30)
[2023-04-21] MEDS ORDERED: LORazepam 2MG/ML-1ML VIAL IV PRN (10:30)
[2023-04-22] VITALS (9 sets, daily range): BP systolic 58–77; BP diastolic 36–47; PULSE 96–117; RESP 8–21; TEMP 99.8–100.4; O2SAT 100
[2023-04-22] MEDS: MORPHINE SULFATE INJ 2 MG/ml SYRG IV PRN ×2 (04:10→07:39)
== END 2023-04-22 13:04 | DRG 871 ==
LOC: ER 14:08 → EDBD 14:08 → TELE 20:58 → ICU WEST 04-09 08:09 → TELE-CENTR 04-15 17:54 → CENTRAL 04-18 00:18 → ICU WEST 04-19 10:15 → WEST WING 04-22 05:47
PROVIDERS: ADMIT Internal Medicine; ATTEND Hospitalist
PROC: 05HY33Z Insertion of Infusion Device into Upper Vein, Percutaneous Approach (ICD-10-PCS; principal; 2023-04-10)
PROC: B54MZZA Ultrasonography of Right Upper Extremity Veins, Guidance (ICD-10-PCS; 2023-04-10)
DX: A41.9 Sepsis, unspecified organism (principal); G93.41 Metabolic encephalopathy; R65.21 Severe sepsis with septic shock; K83.1 Obstruction of bile duct; D68.9 Coagulation defect, unspecified; N17.9 Acute kidney failure, unspecified; E87.20 Acidosis, unspecified; I13.0 Hypertensive heart and chronic kidney disease with heart failure and stage 1 through stage 4 chronic kidney disease, or unspecified chronic kidney disease; M62.82 Rhabdomyolysis; K83.09 Other cholangitis; J44.0 Chronic obstructive pulmonary disease with (acute) lower respiratory infection; I42.9 Cardiomyopathy, unspecified; I48.20 Chronic atrial fibrillation, unspecified; I50.22 Chronic systolic (congestive) heart failure; Z66 Do not resuscitate; K72.90 Hepatic failure, unspecified without coma; R62.7 Adult failure to thrive; E86.0 Dehydration; E27.9 Disorder of adrenal gland, unspecified; E78.5 Hyperlipidemia, unspecified; E03.9 Hypothyroidism, unspecified; M10.9 Gout, unspecified; N18.30 Chronic kidney disease, stage 3 unspecified; E87.5 Hyperkalemia; F03.90 Unspecified dementia, unspecified severity, without behavioral disturbance, psychotic disturbance, mood disturbance, and anxiety; E83.52 Hypercalcemia; Z86.73 Personal history of transient ischemic attack (TIA), and cerebral infarction without residual deficits; Z85.46 Personal history of malignant neoplasm of prostate; Z90.49 Acquired absence of other specified parts of digestive tract; Z92.3 Personal history of irradiation
CPT/HCPCS: 36415; 36569; 36600; 70450; 70551; 71045; 74177; 76705; 80048; 80053; 80202; 81001; 82140; 82533; 82607; 82746; 82805; 82962; 83540; 83550; 83605; 83735; 83880; 84132; 84439; 84443; 84481; 84484; 85007; 85025; 85027; 85610; 87040; 87076; 87077; 87081; 87086; 92507; 92610; 93005; 93306; 93971; 94640; 95819; 96361; 96365; 96367; 96375; 97110; 97116; 97163; 97530; 99291; C9113; G0378; J0696; J1815; J2185; J2543; J3480; P9047